=== PATIENT | male | born 1995 | race American Indian/Alaskan Native ===

== ENCOUNTER 2016-05-16 10:09 | Emergency (ER) | payer SELFPAY ==
[2016-05-16 10:44] VITALS: BP 148/92
--- NOTE | 2016-05-16 12:21 | Emergency Department Report ---
HPI - General Chief Complaint: Urogenital-Male Time Seen by Provider: 05/16/16 12:18 - HPI HPI: This is a 20-year-old Afro-[place] male who presents to the emergency department with a 1-2 day history of some burning with urination and penile discharge. He denies any lesions to the penis or testicles. He denies any pain to the penis or testicles. He denies any history of STDs. Patient is not a virgin but says he has not had sex active for close to a year. He is not taking anything for symptoms prior to presentation. No recent travel or sick contacts at home. No primary care doctor. ED Past Medical Hx - Past Medical History Previous Medical History?: No - Surgical History Past Surgical History?: No - Social History Smoking Status: Current Every Day Smoker Substance Use Type: Marijuana - Medications Home Medications: Home Medications Medication Instructions Recorded Confirmed Last Taken Type Azithromycin [Zithromax TAB] 2,000 mg PO ONCE #8 tablet 05/16/16 Unknown Rx ED Review of Systems ROS: Stated complaint: PENILE URINATION Other details as noted in HPI Comment: All other systems reviewed and negative Constitutional: denies: chills, fever Eyes: denies: eye pain, eye discharge, vision change ENT: denies: ear pain, throat pain Respiratory: denies: cough, shortness of breath, wheezing Cardiovascular: denies: chest pain, palpitations Gastrointestinal: denies: abdominal pain, nausea, diarrhea Genitourinary: dysuria, discharge Musculoskeletal: denies: back pain, joint swelling, arthralgia Skin: denies: rash, lesions Neurological: denies: headache, weakness, paresthesias Physical Exam - Physical Exam Vital Signs: Vital Signs 05/16/16 10:43 Temperature 98.5 F Pulse Rate 58 L Respiratory 16 Rate Blood Pressure 148/92 O2 Sat by Pulse 100 Oximetry Physical Exam: GENERAL: The patient is well-developed well-nourished. Patient does not appear in any acute distress. HEENT: Normocephalic. Atraumatic. Extraocular motions are intact. Patient has moist mucous membranes. NECK: Supple. Trachea is midline. CHEST/LUNGS: Clear to auscultation. There is no respiratory distress noted. HEART/CARDIOVASCULAR: Regular. There is no tachycardia. There is no gallop rub or murmur. ABDOMEN: Abdomen is soft, nontender. Patient has normal bowel sounds. There is no abdominal distention. SKIN: There is no rash. There is no edema. There is no diaphoresis. NEURO: The patient is awake, alert, and oriented. The patient is cooperative. The patient has no focal neurologic deficits. The patient has normal speech and gait. MUSCULOSKELETAL: There is no tenderness or deformity. There is no limitation range of motion. There is no evidence of acute injury. : Normal-appearing uncircumcised penis and testicles. No obvious rash or lesions. No visible discharge. ED Course Vital Signs 05/16/16 10:43 Temperature 98.5 F Pulse Rate 58 L Respiratory 16 Rate Blood Pressure 148/92 O2 Sat by Pulse 100 Oximetry ED Medical Decision Making - Medical Decision Making 20-year-old male presents to the emergency department with a few days of burning with urination and penile discharge. Patient says he is not sexually active. Urinalysis does not show any signs of urinary tract infection. Physical exam there are no abnormalities seen with the skin, penis or scrotum. Will go ahead and treat the patient with 2 g of azithromycin anyways for nonspecific urethritis and will be given referrals for primary care. - Differential Diagnosis urethritis, UTI, syphilis, gonorrhea/chlamydia Critical Care Time: No Critical care attestation.: If time is entered above; I have spent that time in minutes in the direct care of this critically ill patient, excluding procedure time. ED Disposition Clinical Impression: Dysuria, Urethritis Disposition: DISCHARGED TO HOME OR SELFCARE Is pt being admited?: No Does the pt Need Aspirin: No Condition: Good Instructions: Nonspecific Urethritis in Men (ED) Additional Instructions: Please follow-up with a primary care doctor in the near future. Return to the emergency department with any worsening of your symptoms or any acute distress. Prescriptions: Azithromycin [Zithromax TAB] 2,000 mg PO ONCE #8 tablet Referrals: PRIMARY CARE [Primary Care Provider] - 3-5 Days [facility] [Outside] - 3-5 Days [facility] [Outside] - 3-5 Days [facility] [Outside] - 3-5 Days Time of Disposition: 13:46
[2016-05-16 13:33] LABS: Bilirubin,Urine NEG (Negative); Blood,Urine NEG (Negative); Ketones,Urine NEG (Negative); Leukocyte Esterase,Urine NEG (Negative); Mucus,Urine FEW /HPF; Nitrite,Urine NEG (Negative); Protein,Urine <15 mg/dL mg/dL (Negative); WBC,Urine < 1.0 /HPF (0.0-6.0)
== END 2016-05-16 13:55 | disposition home or self-care (01) ==
LOC: ED 10:09
DX: N34.2 Other urethritis (principal); F12.10 Cannabis abuse, uncomplicated; F17.200 Nicotine dependence, unspecified, uncomplicated
CPT/HCPCS: 81001; 99283